=== PATIENT | female | born 1930 | race Caucasian/White ===

== ENCOUNTER → 2017-02-25 | Day surgery (SDC) | payer OTHER ==
[~2017-02-25] VITALS: Ht 152.4 cm; Wt 68.9 kg
[~2017-02-25] MED LIST: ALENDRONATE SOD70 M2 PO; AMLODIPINE BESYL5 M1 PO; ASPIRIN325 M2 PO; BETIMOL5 M1 OPH; COZAAR100 M1 PO; ESCITALOPRAM OX10 MG PO; MIRTAZAPINE45 M1 PO; SIMBRINZA 1%-0.28 ML; TRAVATAN Z5 ML OPH; [UNRECOGNIZED DRUG - SUPPLY]
--- NOTE | 2017-02-25 14:48 | Operative Report ---
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 We talked about skin grafting for sure for one lesion possibly 2. We talked about definite visible cosmetic changes infection bleeding pain numbness visible cosmetic deformities to the area as well as palpitations of the donor site including definite visible scarring possible slightly symptomatic infection bleeding or pain. Patient was brought to the operative placed supine on the table. Intravenous MR sensation were given in the scalp and Vicryl prepped and draped in usual sterile fashion. Local anesthesia was injected after sterile prep and drape. Full- thickness excision of the lesions for the dimensions described above was carried out. Extensive undermining was carried out superior occipital lesion. Extensive undermining was then carried out to provide 2 layer tension-free closure for the dimensions described above. After excising full-thickness. Second lesion photograph was harvested from the right groin defatted placed in the defect sutured at the periphery including a tie-over bolster dressing. 2 layer closure was carried out the donor site. End dictation
== END ==
LOC: STS 02:09
DX: C44.42 Squamous cell carcinoma of skin of scalp and neck (principal); C44.41 Basal cell carcinoma of skin of scalp and neck; I10 Essential (primary) hypertension; I35.0 Nonrheumatic aortic (valve) stenosis; M19.90 Unspecified osteoarthritis, unspecified site
CPT/HCPCS: 88305; J0131; J0690; J2250